=== PATIENT | male | born 1980 | race Caucasian/White ===

== ENCOUNTER 2016-10-28 13:07 | Emergency (ER) | payer SELFPAY ==
[~2016-10-28] VITALS: Ht 180.3 cm; Wt 77.3 kg
[~2016-10-28 13:07] MED LIST: AMOXICILLIN 50500 MG PO; AMOXICILLIN 8751 TAB PO; FLEXERIL 1010 MG/TAB PO; MAXITROL OPHTH D5 ML OT; NO HOME MEDICATIONS; NORCO 325 MG-51 TAB PO
[2016-10-28 13:11] VITALS: BP 130/82; TEMP 98.4
[2016-10-28 14:10] VITALS: PULSE 79
== END 2016-10-28 14:18 | disposition home or self-care (01) ==
LOC: COL.ER 13:07
DX: H57.12 Ocular pain, left eye (principal); Z23 Encounter for immunization

== ENCOUNTER 2017-07-29 07:38 | Emergency (ER) | payer SELFPAY ==
[~2017-07-29] VITALS: Ht 182.9 cm; Wt 77.3 kg
[2017-07-29 07:40] VITALS: BP 130/67; TEMP 99.3
[2017-07-29] MEDS ORDERED: PHENERGAN 25 TA25 MG PO (08:07)
[2017-07-29 08:33] LABS: INFLUENZA A NEGATIVE; INFLUENZA B NEGATIVE
[2017-07-29 08:50] VITALS: PULSE 77
== END 2017-07-29 08:51 | disposition home or self-care (01) ==
LOC: COL.ER 07:38
PROVIDERS: Physician Assistant
DX: M79.1 Myalgia (principal); R11.0 Nausea; R50.9 Fever, unspecified; F17.210 Nicotine dependence, cigarettes, uncomplicated

== ENCOUNTER 2017-09-09 17:15 | Emergency (ER) | payer SELFPAY ==
[~2017-09-09] VITALS: Ht 182.9 cm; Wt 72.7 kg
[~2017-09-09 17:15] MED LIST changes: +PHENERGAN 25 TA25 MG PO
[2017-09-09 17:21] VITALS: BP 129/79; PULSE 79; TEMP 98.6
== END 2017-09-09 17:53 | disposition home or self-care (01) ==
LOC: COL.ER 17:15
DX: H10.89 Other conjunctivitis (principal); F17.210 Nicotine dependence, cigarettes, uncomplicated